=== PATIENT | female | born 2000 | race Caucasian/White ===

== ENCOUNTER 2024-04-20 23:37 | Emergency (ER) | payer MEDICAID ==
[~2024-04-20] VITALS: Ht 154.9 cm; Wt 78.5 kg
[2024-04-20 23:50] VITALS: BP 137/81; PULSE 88; RESP 14; TEMP 98.2; O2SAT 99
[2024-04-21] MEDS ORDERED: NAPR-337 PO (00:47)
== END 2024-04-21 00:58 | disposition home or self-care (01) ==
LOC: MED 23:37
DX: S46.912A Strain of unspecified muscle, fascia and tendon at shoulder and upper arm level, left arm, initial encounter (principal); Z79.899 Other long term (current) drug therapy; X50.0XXA Overexertion from strenuous movement or load, initial encounter; Y92.89 Other specified places as the place of occurrence of the external cause; Y93.89 Activity, other specified; Y99.8 Other external cause status
CPT/HCPCS: 73030; 81025; 99283